=== PATIENT | female | born 1995 | race Caucasian/White ===

== ENCOUNTER 2017-02-08 19:04 | Observation (INO) ==
[2017-02-08 20:23] LABS: Bilirubin,Urine Negative (Negative); Blood,Urine Large (Negative); Clarity,Urine Cloudy (Clear); Color,Urine Yellow (Yellow); Glucose,Urine (UA) Normal (Normal); Ketones,Urine Negative (Negative); Leukocyte Esterase,Urine Trace (Negative); Nitrite,Urine Negative (Negative); Protein,Urine Trace mg/dL (Neg-Trace); Specific Gravity,Urine 1.029 (1.010-1.025); Urobilinogen,Urine Normal (Normal)
[2017-02-08 20:26] LABS: Bacteria,Urine Few per hpf (None-Few); Hyaline Casts,Urine Few per lpf (None-Few); Squamous Epithelial Cell,Urine Many per lpf (None-Few)
--- NOTE | 2017-02-08 20:29 | Emergency Department Note ---
START Narrative - START START: I examined this patient and my medical decision-making was reviewed with the Resident Physician. I agree with the documented findings, disposition and treatment plan as described except to the extent set forth below. Patient was independently seen and evaluated by myself. Patient was seen with the emergency medicine resident Tray Flores. Please see copy of her notes for details of this ED encounter management and disposition. Briefly: A 21-year-old female , presents with one-day atraumatic vaginal bleeding. No new sexual contacts. No dysuria or fevers chills nausea vomiting. No recent trauma. Abdominal examination is benign. Patient appears well afebrile with stable vital signs. RhoGAM workup in addition to quantitative hCG and urinalysis are pending. Disposition pending
[2017-02-08 20:34] LABS: Calcium Oxalate Crystals,Urine Present; Mucus,Urine Few (Few); RBC,Urine 0-3 per hpf (0-3)
[2017-02-08 20:34] LABS: Basophils # 0.1 K/mcL (0.0-0.2); Eosinophils # 0.1 K/mcL (0.0-0.6); Eosinophils % 0.6 %; Hematocrit 36.3 % (35.3-44.9); Hemoglobin 11.8 g/dL (11.5-15.4); Immature Granulocytes % 0.4 % (0-4); Lymphocytes % 59.3 %; Mean Corpuscular HGB Conc 32.5 g/dL (31.6-35.5); Mean Corpuscular Hemoglobin 28.6 pg (28.0-33.3); Mean Corpuscular Volume 88.1 fL (83.0-100.0); Mean Platelet Volume 9.5 fL (9.4-12.4); Monocytes # 0.5 K/mcL (0.0-1.3); Monocytes % 6.1 %; Platelet Count 243 K/mcL (140-400); Red Blood Count 4.12 M/mcL (3.82-4.97); Segmented Neutrophils % 32.6 %
[2017-02-08 20:40] LABS: Lymphocytes # 4.6 K/mcL (0.6-4.6); Neutrophils # 2.5 K/mcL (1.6-8.9)
--- NOTE | 2017-02-08 20:43 | Emergency Department Note ---
Disposition Clinical Impression: Ruptured ectopic Disposition: Admitted As Inpatient Time of Disposition: 00:47 General Adult HPI - General Chief complaint: ED Urogenital-Female Stated complaint: vaginal bleeding, . sent from OB Time Seen by Provider: 02/08/17 20:12 Source: patient Limitations: no limitations Nursing Notes Reviewed: Yes Vital Signs Reviewed: Yes - History of Present Illness HPI Narrative: 21-year-old female presents the ED approximately 4-6 weeks and recently seen her PEARL DIGGER which is Dr. Ayala she states that yesterday she started to have some vaginal bleeding since first it was spotting and now has increased to low but more towards she is almost filling a pad today. She is worried about this and called her OB who recommended if she continues to bleed to come to the emergency department to be evaluated. She states she has a little bit of cramping in the suprapubic area but it is very slight approximately 2 out of 10 nonradiating and is a dull ache. She has not taken anything for this pain. She does not want to take anything while here in the department for it. She states she had a beta Quant done last week which is in . And she has not had a confirmed IUP via ultrasound. She states no nausea, vomiting, chest pain, shortness of breath, headache, fevers, blurry vision, pain with urination, as patient/diarrhea, pain or tingling going down the arms or legs. Patient states that she has not had sex in over 2 weeks. And that was not a new sexual partner. She has not noticed any odor is or weird vaginal discharge. She does not think that there is any chance she could have an STD. Pain Scale: 4 - Related Data Home Medications Medication Instructions Recorded Confirmed Omeprazole [PriLOSEC] 20 mg PO DAILY 02/08/17 02/08/17 Allergies Allergy/AdvReac Type Severity Reaction Status Date / Time Penicillins [PCN] AdvReac Vomiting Verified 02/08/17 19:52 Review of Systems: 10 point review of systems done and everything negative unless stated in the history of present illness. All systems ED: reviewed and negative except as stated. Review of Systems: As Per HPI Constitutional: Denies: fever Genitourinary: Denies: urgency, dysuria, frequency, hematuria, discharge Past Medical History - Past Medical History Medical history: Reports: no medical history Psychiatric history: Reports: anxiety, depression, prior suicide attempt PEARL DIGGER history: Reports: no PEARL DIGGER history : 1 Para: 0 Ab: 0 - Social History Smoking Status: Never smoker Smokeless Tobacco Status: No Alcohol use: Reports: none Drug use: Reports: none Physical Exam - General Limitations: no limitations General appearance: alert, in no apparent distress - Head Head exam: atraumatic, normocephalic, normal inspection - Eye Eye exam: Present: normal appearance, PERRL, EOMI - ENT ENT exam: normal exam, normal oropharynx, mucous membranes moist - Neck Neck exam: Present: normal inspection, full ROM, trachea midline - Chest Chest inspection: Present: normal inspection, symmetric chest wall rise - Respiratory Respiratory exam: Present: normal lung sounds bilaterally - Cardiovascular Cardiovascular exam: Present: regular rate, normal rhythm, normal heart sounds - Abdominal Exam Abdominal exam: Present: soft, Non-Tender (No pain in the suprapubic area or anywhere else in the abdomen on palpation.), normal bowel sounds. Absent: tenderness, distention, guarding, rebound, rigidity - Female External Exam: Present: pt deferred Speculum Exam: Present: Pt Deferred (Spoke with patient about doing this and she declined as she says there is no chance that she has an STD.) Bimanual Exam: Present: Pt Deferred - Back Exam Back exam: Present: normal inspection, full ROM. Absent: tenderness, CVA tenderness (R), CVA tenderness (L) - Neurological Exam Neurological exam: Present: alert, oriented X3 - Skin Skin exam: Present: warm, dry, intact, normal color Course Course Narrative: We will get a beta Quant checking for gestation if over 5000 we will order an transabdominal formal ultrasound to check for IUP. We will also get a CBC to see if there is any abnormalities. We will get a type and screen to check for Rh to see if she needs RhoGAM. Patient is okay with this plan. - Reevaluation(s) Reevaluation #1: Radiology called me back stating that after reading the ultrasound patient had a ruptured ectopic with no uterine IUP. At this time I notified OB and spoke with the systems qa analyst who said they would notify the physician and have them call me back. I reexamined the patient this time and she is still complaining of no abdominal pain. She states that she is feeling comfortable. Patient stated that she last ate food at approximately 4:00. At this time we will get an IV start normal saline 1 L and we will get a PT/INR as well as the other labs that were there. Time: 22:30 - Consultations Consultation #1: Called the OB on-call and spoke with the systems qa analyst who stated that they would let the physician know and they would call me back. Time: 22:25 Vital Signs Temperature 99 F 02/08/17 19:50 Pulse Rate 98 02/08/17 19:50 Respiratory Rate 20 02/08/17 19:50 Blood Pressure 105/72 02/08/17 19:50 O2 Sat by Pulse Oximetry 99 02/08/17 19:50 Temperature 99 F 02/08/17 19:50 Pulse Rate 97 02/09/17 00:32 Respiratory Rate 18 02/09/17 00:32 Blood Pressure 110/74 02/09/17 00:32 O2 Sat by Pulse Oximetry 98 02/09/17 00:32 Oxygen Delivery Oxygen Delivery Room Air Medical Decision Making - MDM Narrative Medical decision making narrative: 21-year-old female presenting to the ED complaining of vaginal bleeding. On exam she did not have any abdominal pain she states that she was approximately 4 -[address] Pierce is an OB. She said the bleeding started yesterday and she had mild cramping does not have any pain at this time. We did a quant which came back at 5000 her previous approximately one week ago was 2200. This is the patient's first . She does have a history of endometriosis and has had her gallbladder taken out by Dr. Mcallister about 3 years ago. We also did type and screen and she was O+ so RhoGAM is not needed. With her quant being about 5000 we ordered a ultrasound to see if there is any etiology which came back showing a ruptured ectopic on the right side with free fluid in the abdomen. This was called to me by the radiologist. I immediately contacted the OB on-call and spoke with the systems qa analyst who said the OB would come down to see the patient. Dr. Dorman is the OB SR. They said that they are going to surgically remove it. At this time the patient is admitted to the OB service. Patient is in stable condition and is still having no abdominal pain is stable and vital signs are stable at this time. We did start an IV and give her normal saline. We also had on a PT INR in case for surgery. Patient is now admitted to the OB service for surgery tonight. Obstetrics Ultrasound 02/08/17 21:03 IMPRESSION: 1. Findings consistent with ruptured right adnexal ectopic gestation. 2. No intrauterine gestational sac. 3. Normal ovaries. No evidence of ovarian torsion. Findings were discussed with Tray Flores at 10:17 pm on 02/08/2017. D/ / Patrick Gay MD / Patrick Gay MD Interpreting Provider: Patrick Gay MD - Medical Records Medical records reviewed: Yes I reviewed the patient's medical records. - Lab Data Lab results reviewed: Yes I reviewed the patient's lab results. Result diagrams: 02/08/17 20:26 Lab Results 02/08/17 02/08/17 02/08/17 Range/Units 19:50 20:26 20:26 WBC 7.8 (4.3-11.1) K/mcL RBC 4.12 (3.82-4.97) M/mcL Hgb 11.8 (11.5-15.4) g/dL Hct 36.3 (35.3-44.9) % MCV 88.1 (83.0-100.0) fL MCH 28.6 (28.0-33.3) pg MCHC 32.5 (31.6-35.5) g/dL RDW 13.0 (11.5-14.5) % Plt Count 243 (140-400) K/mcL MPV 9.5 (9.4-12.4) fL Immature Gran % 0.4 (0-4) % Seg Neutrophils % 32.6 % Lymphocytes % 59.3 % Monocytes % 6.1 % Eosinophils % 0.6 % Basophils % 1.0 % Neutrophils # 2.5 (1.6-8.9) K/mcL Lymphocytes # 4.6 (0.6-4.6) K/mcL Monocytes # 0.5 (0.0-1.3) K/mcL Eosinophils # 0.1 (0.0-0.6) K/mcL Basophils # 0.1 (0.0-0.2) K/mcL Reactive Lymphocytes Present A (Not Present) Platelet Estimate Normal (Normal) Anisocytosis 1+ A (Not Present) PT (9.4-12.1) Seconds INR Beta HCG, Quant (0-4) mIU/ml Ur Specimen Adequacy See below A Urine Color Yellow (Yellow) Urine Clarity Cloudy A (Clear) Urine pH 6.0 (5.0-8.0) pH Units Ur Specific [place] 1.029 H (1.010-1.025) Urine Protein Trace (Neg-Trace) mg/dL Urine Glucose (UA) Normal (Normal) mg/dL Urine Ketones Negative (Negative) mg/dL Urine Blood Large H (Negative) Urine Nitrite Negative (Negative) Urine Bilirubin Negative (Negative) Urine Urobilinogen Normal (Normal) mg/dL Ur Leukocyte Esterase Trace H (Negative) Urine Microscopic RBC 0-3 (0-3) per hpf Urine Microscopic WBC 5-15 H (0-3) per hpf Ur Squamous Epith Cells Many H (None-Few) per lpf Calcium Oxalate Crystal Present Urine Bacteria Few (None-Few) per hpf Hyaline Casts Few (None-Few) per lpf Urine Mucus Few (Few) Ur Culture Indicated? YES A (NO) Blood Type A POSITIVE Antibody Screen NEGATIVE 02/08/17 02/08/17 Range/Units 20:26 20:26 WBC (4.3-11.1) K/mcL RBC (3.82-4.97) M/mcL Hgb (11.5-15.4) g/dL Hct (35.3-44.9) % MCV (83.0-100.0) fL MCH (28.0-33.3) pg MCHC (31.6-35.5) g/dL RDW (11.5-14.5) % Plt Count (140-400) K/mcL MPV (9.4-12.4) fL Immature Gran % (0-4) % Seg Neutrophils % % Lymphocytes % % Monocytes % % Eosinophils % % Basophils % % Neutrophils # (1.6-8.9) K/mcL Lymphocytes # (0.6-4.6) K/mcL Monocytes # (0.0-1.3) K/mcL Eosinophils # (0.0-0.6) K/mcL Basophils # (0.0-0.2) K/mcL Reactive Lymphocytes (Not Present) Platelet Estimate (Normal) Anisocytosis (Not Present) PT 11.7 (9.4-12.1) Seconds INR 1.1 Beta HCG, Quant 5060 H (0-4) mIU/ml Ur Specimen Adequacy Urine Color (Yellow) Urine Clarity (Clear) Urine pH (5.0-8.0) pH Units Ur Specific [place] (1.010-1.025) Urine Protein (Neg-Trace) mg/dL Urine Glucose (UA) (Normal) mg/dL Urine Ketones (Negative) mg/dL Urine Blood (Negative) Urine Nitrite (Negative) Urine Bilirubin (Negative) Urine Urobilinogen (Normal) mg/dL Ur Leukocyte Esterase (Negative) Urine Microscopic RBC (0-3) per hpf Urine Microscopic WBC (0-3) per hpf Ur Squamous Epith Cells (None-Few) per lpf Calcium Oxalate Crystal Urine Bacteria (None-Few) per hpf Hyaline Casts (None-Few) per lpf Urine Mucus (Few) Ur Culture Indicated? (NO) Blood Type Antibody Screen - Radiology Data Radiology results reviewed: Yes I reviewed the patient's radiology results.
[2017-02-08 20:56] LABS: Platelet Estimate Normal (Normal); Reactive Lymphocytes Present (Not Present)
[2017-02-08 20:57] LABS: Anisocytosis 1+ (Not Present)
[2017-02-08] MEDS ORDERED: 0.9 % Sodium Chloride 1,000 ML IVC ONE (22:35)
[2017-02-08 22:50] LABS: INR 1.1; Prothrombin Time 11.7 Seconds (9.4-12.1)
--- NOTE | 2017-02-09 00:39 | OB/GYN History & Physical ---
Date of Encounter: 02/09/17 Time of Encounter: 00:36 Assessment and Plan (1) Ruptured ectopic Current visit: Yes Status: Acute Due to HCG 5060 needs surgical intervention. Patient examined, plan for laparoscopy + removal of ectopic . Patient has been consented for laparoscopy and possible laparotomy, removal of right fallopian tube (2) at early stage Current visit: No Status: Acute History of Present Illness Chief complaint: Vaginal bleeding and cramping HPI: Ms. Gomez is a 21 year old female of unknown gestation presents to ED with complaints of abdominal cramping and vaginal spotting and bleeding for the last two days. Pt states it started as spotting yesterday and has now progressed to a steady stream of blood filling 1 pad area and some menstrual- like cramping associated with the bleeding. Pt states she is 4-6 weeks based on an urgent care HCG assessment two weeks ago she was told is was 1999. Pt of Dr. Ayala has supressed menses scheduled for February, no formal PNC at this time. Pt states she has been sexually active with current partner only for the last 4 weeks, denies history of STI. Pt has a history of abdominal pain and discomfort, GERD, status post cholecystectomy. There has been concern for possible long-term endometriosis Past Med Surg Social Fam HX - Past Medical History Source: patient, old records reviewed Medical history: GERD, other (anemia per pt) Psychiatric history: anxiety, depression, prior suicide attempt - Past Surgical History Surgical History: cholecystectomy, other (Exploratory laparotomy for abdominal pain) - Social History Smoking Status: Never smoker Smokeless Tobacco Status: No Alcohol use: none Drug use: none Obstetrical History - Pregnancies : 1 Para: 0 Term: 0 : 0 Ab's: 0 Livin Medications and Allergies Omeprazole [PriLOSEC] 20 mg PO DAILY 02/08/17 [History] 3 Allergy/AdvReac Type Severity Reaction Status Date / Time Penicillins [PCN] AdvReac Vomiting Verified 02/08/17 19:52 Review of System OB All systems PM: reviewed and no additional remarkable complaints except as stated - Gastrointestinal Gastrointestinal: as per HPI, abdominal pain, no change in bowel habits, no constipation - Genitourinary Genitourinary: as per HPI, abnormal vaginal bleeding, pelvic pain, no dyspareunia, no genital lesions, no sexual dysfunction, no urinary frequency, no vaginal discharge Exam - Vital Signs Vital signs: Initial Vital Signs Temp Pulse Resp BP Pulse Ox 99 F 98 20 105/72 99 02/08/17 19:50 02/08/17 19:50 02/08/17 19:50 02/08/17 19:50 02/08/17 19:50 - Constitutional Constitutional: well developed, well nourished, no acute distress, average body habitus - Neck Neck exam: full ROM - Lungs Respiratory exam: CTAB - Cardiovascular Cardiovascular exam: RRR, +S1, +S2 - Abdomen Abdomen: Present: bowel sounds normal Abdomen detail: right lower quadrant: tenderness - Extremities Extremities exam: normal capillary refill, normal inspection - Vulva Vulva: bilateral: normal - Uterus Uterus exam: Present: normal size, tender - Adnexa Adnexa: right: mass, bilateral: tenderness (Right greater than left) - Anus/Rectum Anus/Rectum: Present: normal perianal skin - Comments Comments: Uterus is moderately tender as was the right adnexa. Mild cervical motion tenderness. No anterior vaginal wall tenderness Results Result Diagrams: 02/08/17 20:26 Abnormal lab results Reactive Lymphocytes Present (Not Present) A 02/08/17 20:26 Anisocytosis 1+ (Not Present) A 02/08/17 20:26 Beta HCG, Quant 5060 mIU/ml (0-4) H 02/08/17 20:26 Ur Specimen Adequacy See below A 02/08/17 19:50 Urine Clarity Cloudy (Clear) A 02/08/17 19:50 Ur Specific [place] 1.029 (1.010-1.025) H 02/08/17 19:50 Urine Blood Large (Negative) H 02/08/17 19:50 Ur Leukocyte Esterase Trace (Negative) H 02/08/17 19:50 Urine Microscopic WBC 5-15 per hpf (0-3) H 02/08/17 19:50 Ur Squamous Epith Cells Many per lpf (None-Few) H 02/08/17 19:50 Ur Culture Indicated? YES (NO) A 02/08/17 19:50 All other labs normal. - VTE Documentation of Mechanical Device: Intermittent pneumatic compression device
--- NOTE | 2017-02-09 00:45 | Anesthesia Evaluation PreOp ---
Date of Encounter: 02/09/17 Time of Encounter: 01:59 - Past History Planned Operation: Laparoscopy salpingectomy for ectopic Cardiac History: Denies any Significant Hx Pulmonary History: Denies Any Significant HX TRADE SALES ASSISTANT History: Denies Any Significant HX Other Medical History: GERD Anesthesia History: No Prior Anesthetic Complications, Past Anesthesia ( cholecystectomy, endoscopy) Alcohol Use: none Drug use: none Medications and Allergies Omeprazole [PriLOSEC] 20 mg PO DAILY 02/08/17 [History] 3 Allergy/AdvReac Type Severity Reaction Status Date / Time Penicillins [PCN] AdvReac Vomiting Verified 02/08/17 19:52 - Meds/Allergy Pre-op Review Medications Reviewed: Yes Allergies Reviewed: Yes Beta Blockers on Current Med List: No Anesthesia Results - Labs 02/08/17 20:26 Anesthesia Exam Last Vital Signs Temp 99 F 02/08/17 19:50 Pulse 97 02/09/17 00:32 Resp 18 02/09/17 00:32 BP 110/74 02/09/17 00:32 Pulse Ox 98 02/09/17 00:32 Weight: 64 kg NPO (# of Hours): 6 hrs - HEENT Pupil (Motor): Pupils equal, EOMI Mallampati: II Teeth: Normal Oral Opening: Greater than 3 - TRADE SALES ASSISTANT LOC: Oriented TRADE SALES ASSISTANT Motor: Normal RUE, Normal LUE, Normal RLE, Normal LLE, Normal Face - Cardiac Rhythm: Regular Murmur: None - Pulmonary Breath Sounds: bilateral Clear Respiratory Effort: Symmetrical Anesthesia Assess/Plan ASA Score: 2, E Modified [place] Scale for Level of Consciousness: Cooperative, oriented, and tranquil Anesthetic Plan: General Monitoring Plan: Standard Monitors Recovery Plan: PACU
[2017-02-09] MEDS ORDERED: *HR* Belladonna Alkaloids/Opium 30 MG RECTAL SUPPOSITORY RC ONE (00:47)
[2017-02-09] MEDS ORDERED: Bupivacaine/EPI 1:200k 0.5%PF 10 ML VIAL ONE (00:48)
[2017-02-09] MEDS ORDERED: MetroNIDAZOLE 500 MG/100 ML 500 MG/100 ML BAG IVPB ONE ×2 (01:38→02:03)
[2017-02-09] MEDS ORDERED: Levofloxacin 500 MG/100 ML 500 MG/100 ML BAG IVPB ONE (01:39)
[2017-02-09] MEDS ORDERED: Lidocaine -MPF 2% 2 ML VIAL ONE (01:44)
[2017-02-09] MEDS ORDERED: *HR* Midazolam HCl 2 MG/2 ML VIAL ONE (01:44)
[2017-02-09] MEDS ORDERED: *HR* Succinylcholine 200 MG/10 ML VIAL IVP ONE (01:44)
[2017-02-09] MEDS ORDERED: *HR* FentaNYL (PF) 100 MCG/2 ML VIAL ONE ×2 (01:44→02:55)
[2017-02-09] MEDS ORDERED: *HR* Propofol 200 MG/20 ML VIAL IVP ONE (01:44)
[2017-02-09] MEDS ORDERED: Ondansetron 4 MG/2 ML VIAL ONE (01:45)
[2017-02-09] MEDS ORDERED: Dexamethasone 4 MG/ML VIAL ONE (01:45)
[2017-02-09] MEDS ORDERED: *HR* HYDROmorphone (PF) 1 MG/ML SYRINGE IVP PRN (02:00)
[2017-02-09] MEDS ORDERED: *HR* Phenylephrine 10 MG/ML VIAL ONE (02:22)
[2017-02-09] MEDS ORDERED: Ketorolac 30 MG/ML VIAL ONE (02:32)
[2017-02-09] MEDS ORDERED: Neostigmine Methylsulfate 3 MG/3 ML SYRINGE ONE (02:32)
[2017-02-09] MEDS ORDERED: *HR* Rocuronium Bromide 50 MG/5 ML VIAL ONE (02:32)
[2017-02-09] MEDS: *HR* Promethazine 25 MG/ML VIAL IVP PRN ×2 (03:50→03:55)
--- NOTE | 2017-02-09 03:51 | Discharge Summary ---
Outpatient Proc Discharge Plan - Plan Additional Instructions: Pelvic rest, no driving for 48 hours. Call for fevers greater than 100.5 or redness and drainage from incisions. Keep incisions dry Home Medications: Omeprazole [PriLOSEC] 20 mg PO DAILY 02/08/17 [History]
[2017-02-09] MEDS ORDERED: Ringers Solution, Lactated 1,000 ML ONE (03:52)
--- NOTE | 2017-02-09 03:59 | OB/GYN Procedure Note ---
Laparoscopy Procedure - Diagnosis Date of procedure: 02/09/17 Pre-op diagnosis: ectopic (right) Post-op diagnosis: same, pelvic adhesive disease - Procedure Laparoscopy procedure: operative laparoscopy, other (Right salpingectomy) Surgeon: Liana Zhao Anesthesia provider: Millie Steel Anesthesia Type: General Estimated blood loss (cc): 5 Complications: none Specimens: right fallopian tube, tubal contents Findings: Pelvis with a small amount of bright red blood. The right fallopian tube was curved downwards and lateral with a large organized clot attached to the pelvic wall and the right ovary with bright red bleeding coming through the right fallopian tube. The left fallopian tube has no adhesions and has normal fimbria. The left ovary appears grossly normal. There are adhesions of the bowel to the left sidewall above the fallopian tube and ovary. Disposition: PACU Narrative: The patient was taken to the operating room and given general anesthesia adequate for abdominal and pelvic surgery. She is prepped and draped in the usual sterile fashion in yellow fin stirrups after being examined under anesthesia. The timeout was completed. A speculum was placed in the vaginal vault and the cervix was grasped with a single-tooth tenaculum. A Baltazar cannula then was inserted through the cervical os for uterine manipulation. Gloves were changed. The subumbilical incision site was elevated with Allis clamps, injected with half percent Marcaine with epinephrine 1 mL and a less than 1 cm incision, was made with a scalpel. A 5 mm bladeless trocar was inserted with direct visualization into the abdominal cavity. Abdomen was insufflated with CO2. Pelvis is identified in visually inspected. A suprapubic trocar site was transilluminated, injected with 0.5% Marcaine with epinephrine and an incision was made. A 12 mm bladeless trocar was inserted with direct visualization into the pelvic cavity. A lateral left trocar site was transilluminated, injected with 0.5% Marcaine with epinephrine, an incision made with a scalpel and a 5 mm bladed trocar inserted with direct visualization. A blunt probe was then used for manipulation of the uterus tubes and ovaries. The anterior posterior cul-de-sacs were inspected. The left and right gutters were inspected. The upper abdomen was inspected. Photos were taken. Please see findings for complete and detailed description. The pelvis was irrigated copiously with sterile water. The right fallopian tube was identified to contain an ectopic which was rupturing. It was grasped with a Storm clamp. LigaSure was used to ligate the mesosalpinx along the length of the ectopic . The ectopic was then placed in an Endobag. Good hemostasis was assured at the excision site. There was a large organized clot between the uterus and the ovary. It was removed in pieces from the pelvic sidewall and the right ovary with graspers. The surface was hemostatic. The pelvis was again irrigated with sterile water for a total of 2 L. The Endobag was then removed through the suprapubic incision and the specimen was examined and then sent to pathology. Photos were taken. The instruments removed. The suprapubic trocar was removed and observed to be hemostatic. The laparoscope was removed and the abdomen was deflated. The incisions were closed with Dermabond and Steri-Strips. Estimated blood loss 5 mL's with 20 mL of blood present in the belly at the start of the procedure. Complications none. Patient was given a B&O suppository, extubated and taken to recovery room in stable condition.
--- NOTE | 2017-02-09 04:18 | Anesthesia Evaluation Post Op ---
Date of Encounter: 02/09/17 Time of Encounter: 04: - Vital Signs Vital Signs: Last Vital Signs Temp 97.0 F L 02/09/17 03:40 Pulse 79 02/09/17 04:00 Resp 22 02/09/17 04:00 BP 116/86 02/09/17 04:00 Pulse Ox 95 02/09/17 04:00 - Lungs Lungs: Clear Ascult./Percussion - Airway Airway: Non-obstructed - Cardiovascular Regular Rate - Mental Status Mental Status: Alert & Oriented, Answers Appropriately - Pain Pain Scale: 3 - Nausea Vomiting Nausea Vomiting: Responds to treatment with IV Meds - Hydration Hydration: NPO - Discharge PostOp Status: Transfer Patient to floor
[2017-02-09] MEDS ORDERED: *HR* HYDROcodone/Acet 5/325 mg TABLET PO ONE (04:28)
[2017-02-09 08:05] VITALS: BP 109/74
== END 2017-02-09 10:27 | disposition home or self-care (01) ==
LOC: 1NENUOBS 19:04 → EMEROO 19:04 → 1NENUOBS 02-09 01:15
PROVIDERS: ADMIT Obstetrics & Gynecology; ATTEND Obstetrics & Gynecology